=== PATIENT | female | born 1935 | race African-American/Black ===

== ENCOUNTER 2017-08-28 14:33 | Observation (INO) | payer MEDICARE, MEDICAID ==
[~2017-08-28] VITALS: Ht 152.4 cm; Wt 65.8 kg
[2017-08-28 15:34] LABS: BASOPHILS % 0.4 % (0.0-2.0); EOSINOPHILS % 1.4 % (0.0-5.0); HEMATOCRIT. 27.2 % (36.0-48.0); HEMOGLOBIN. 9.4 g/dL (12.0-16.0); LYMPHOCYTES % 27.1 % (20.0-50.0); MEAN CORPUSCULAR VOLUME 95.7 fL (81.0-99.0); MEAN PLATELET VOLUME 7.2 fl (7.4-10.4); MONOCYTES % 9.9 % (2.0-8.0); NEUTROPHILS % 61.2 % (40.0-76.0); PLATELET 268 x1000/uL (130-400); RED BLOOD CELL COUNT 2.84 mill/uL (4.2-5.4); RED CELL DISTRIBUTION WIDTH 14.6 % (11.6-14.6)
[2017-08-28 15:38] LABS: INR 1.2; PROTHROMBIN TIME 12.3 sec (9.4-11.6)
[2017-08-28 15:42] LABS: CHLORIDE 109 mEq/L (98-107)
[2017-08-28 15:43] LABS: AMMONIA 17 uMol/L (<32)
[2017-08-28 15:47] LABS: CREATINE KINASE 25 IU/L (26-192); ETHANOL BLOOD < 10 mg/dL
[2017-08-28] MEDS ORDERED: SODIUM CHLORIDE 0.9% 1,000 ML IV ONE ×2 (16:00→16:15)
[2017-08-28] MEDS ORDERED: POTASSIUM CHLORIDE INJ 40 MEQ in DEXT 5% WATER 250 ML IV ONE (16:15)
[2017-08-28] MEDS ORDERED: POTASSIUM CHLORIDE INJ 40 MEQ in SODIUM CHLORIDE 0.9% 250 ML IV NR (16:30)
[2017-08-28 22:59] VITALS: BP 153/84
[2017-08-29] VITALS (7 sets, daily range): BP systolic 137–175; BP diastolic 62–77
[2017-08-29] MEDS ORDERED: ACETAMINOPHEN 325MG TABLET PO PRN
[2017-08-29] MEDS ORDERED: DIPHENHYDRAMINE 50MG CAPSULE PO SCH (00:15)
[2017-08-29] MEDS: AMLODIPINE 10MG TABLET PO SCH ×2 (00:30→09:12)
[2017-08-29 07:26] LABS: CHLORIDE 113 mEq/L (98-107)
[2017-08-29 07:42] LABS: HEMATOCRIT 27.3 % (36.0-48.0); HEMOGLOBIN 9.3 g/dL (12.0-16.0); MEAN CORPUSCULAR HEMOGLOBIN 32.9 pg (28.0-32.0); MEAN CORPUSCULAR VOLUME 96.1 fL (81.0-99.0); PLATELET 268 x1000/uL (130-400); RED BLOOD CELL COUNT 2.84 mill/uL (4.2-5.4); RED CELL DISTRIBUTION WIDTH 14.5 % (11.6-14.6)
[2017-08-29] MEDS: ENOXAPARIN 40MG/0.4ML SYR SUBCUT SCH (09:12)
[2017-08-29] MEDS: ASPIRIN 325MG EC TABLET PO SCH (09:12)
[2017-08-30 00:07] VITALS: BP 117/69
[2017-08-30 04:00] VITALS: BP_SYST 136; BP_SYST 150; BP_DIAS 67; BP_DIAS 79
[2017-08-30 08:00] VITALS: BP 138/79
[2017-08-30] MEDS: AMLODIPINE 10MG TABLET PO SCH (08:48)
[2017-08-30] MEDS: ENOXAPARIN 40MG/0.4ML SYR SUBCUT SCH (08:48)
[2017-08-30] MEDS: ASPIRIN 325MG EC TABLET PO SCH (08:48)
[2017-08-30 12:00] VITALS: BP 111/74
[2017-08-30 16:00] VITALS: BP 136/69
[2017-08-30 18:01] LABS: CLARITY URINE TURBID (CLEAR); COLOR URINE YELLOW (YELLOW); KETONES URINE NEGATIVE (NEGATIVE); LEUKOCYTE ESTERASE URINE 3+ (NEGATIVE); NITRITE URINE NEGATIVE (NEGATIVE); OCCULT BLOOD URINE 3+ (NEGATIVE); PH URINE 7.5 (4.5-8.0); PROTEIN URINE 3+ (NEGATIVE); SPECIFIC GRAVITY URINE 1.018 (1.005-1.030)
[2017-08-30 20:00] VITALS: BP 144/80
[2017-08-30] MEDS ORDERED: LEVOFLOXACIN 500MG PREMIX 100 ML IV SCH (23:00)
[2017-08-31] VITALS: BP 148/84
[2017-08-31 04:00] VITALS: BP 142/73
[2017-08-31 07:11] VITALS: BP 148/84
[2017-08-31] MEDS: ASPIRIN 325MG EC TABLET PO SCH (08:46)
[2017-08-31] MEDS: ENOXAPARIN 40MG/0.4ML SYR SUBCUT SCH (08:46)
[2017-08-31] MEDS: AMLODIPINE 10MG TABLET PO SCH (08:47)
[2017-08-31 11:32] VITALS: BP 136/75
[2017-08-31 15:20] VITALS: BP 124/72
[2017-08-31 16:13] VITALS: BP 131/62
== END 2017-08-31 19:45 | disposition home or self-care (01) ==
LOC: ER 14:47 → INTOOBSV 16:12 → 8WST 16:12 → EDBEDREQTM 16:18 → EDBEDREQ 16:18 → ENRESERV 19:41
PROVIDERS: ADMIT Internal Medicine; ATTEND Internal Medicine
DX: R62.7 Adult failure to thrive (principal); R55 Syncope and collapse; R41.82 Altered mental status, unspecified; I10 Essential (primary) hypertension; E87.6 Hypokalemia; G93.40 Encephalopathy, unspecified; D64.9 Anemia, unspecified; N39.0 Urinary tract infection, site not specified; Z74.01 Bed confinement status
CPT/HCPCS: 36415; 70450; 70544; 70553; 71045; 80048; 80053; 81003; 82140; 82550; 82962; 84484; 85025; 85027; 85610; 87077; 87086; 87186; 93005; 93970; 96361; 96365; 96366; 96367; 96372; 97162; 97166; 99291; A6261; C1893; G0378; G0482; J1650; J1956; J3480; J7030; J7050; J7060; Q0163